=== PATIENT | male | born 1995 | race African-American/Black ===

== ENCOUNTER 2020-10-14 08:20 | Emergency (ER) | payer SELFPAY ==
[~2020-10-14] VITALS: Ht 180.3 cm; Wt 97.5 kg
[2020-10-14 09:09] VITALS: BP 150/72
== END 2020-10-14 09:18 | disposition home or self-care (01) ==
LOC: ER 08:41
DX: U07.1 COVID-19 (principal); R50.9 Fever, unspecified; I10 Essential (primary) hypertension
CPT/HCPCS: 99282